=== PATIENT | male | born 1985 | race Caucasian/White ===

== ENCOUNTER 2020-09-29 17:13 | Emergency (ER) | payer MEDICAID, OTHER ==
[~2020-09-29] VITALS: Ht 175.3 cm; Wt 79.4 kg
--- NOTE | 2020-09-29 17:21 | NUR ---
MD at bedside for assessment Addendum: 09/29/20 at 1809 by TOAN Patient brought in by [email or web address] for N/V+
[2020-09-29] MEDS ORDERED: ONDANSETRON 4 MG/2 ML VIAL IV ONE (17:30)
[2020-09-29] MEDS ORDERED: IV NORMAL SALINE 1000 ML BAG IV ONE (17:30)
[2020-09-29 17:47] LABS: MEAN CORPUSCULAR HEMOGLOBIN 30.4 uug (23.8-33.4); MEAN CORPUSCULAR VOLUME 90.7 fL (73.0-96.2); PLATELET COUNT (AUTO) 224 K/uL (152-348)
[2020-09-29 17:48] LABS: CARBON DIOXIDE 28 mmol/L (21-32); CHLORIDE 104 mmol/L (98-107); CREATININE 1.1 mg/dL (0.6-1.3); GLUCOSE 128 mg/dL (74-106); POTASSIUM 4.2 mmol/L (3.5-5.1); UREA NITROGEN, BLOOD 11 mg/dL (7-18)
[2020-09-29 17:49] LABS: ETHANOL < 3 MG/DL (0-0)
[2020-09-29 17:56] LABS: ACETAMINOPHEN < 2.0 ug/mL (10-30); ALANINE AMINOTRANSFERASE 78 U/L (16-63); ALKALINE PHOSPHATASE 85 U/L (50-136); ASPARTATE AMINOTRANSFERASE 95 U/L (15-37); BILIRUBIN,DIRECT 0.1 mg/dL (0.0-0.2); BILIRUBIN,TOTAL 0.5 mg/dL (0.2-1.0); TOTAL PROTEIN, SERUM 7.7 g/dL (6.4-8.2)
[2020-09-29] MEDS ORDERED: IV NORMAL SALINE 500 ML BAG IV ONE (18:15)
--- NOTE | 2020-09-29 19:15 | NUR ---
Recieved report from VERONIQUE Gomes for continuity of care.
--- NOTE | 2020-09-29 19:47 | NUR ---
Pt reports he became nauseous and dizzy today after taking his daily seroquel. States this is normal for him. pts. oxygen is reducing to 90 on room air, current o2 sat is 100% with 3L nasal cannula. Pt. a&ox4, pts. and friend are at bedside.
[2020-09-29 19:51] LABS: *BILIRUBIN,URIN NEGATIVE (NEGATIVE); *BLOOD, URINE NEGATIVE (NEGATIVE); *CLARITY,URINE CLEAR (CLEAR); *COLOR,URINE YELLOW (YELLOW); *KETONES,URINE 1+ (NEGATIVE); LEUKOCYTE ESTERASE ,URINE NEGATIVE (NEGATIVE); NITRITE, URINE NEGATIVE (NEGATIVE); PH,URINE 6.5 (5.0-8.0); UGLUCOSE NEGATIVE (NEGATIVE)
--- NOTE | 2020-09-29 19:55 | NUR ---
pt. oxygen returned to 100% on room air. Will continue to monitor.
[2020-09-29 20:00] LABS: *AMPHETAMINE, URINE NEGATIVE (NEGATIVE); *CANNABINOID, URINE NEGATIVE (NEGATIVE); *COCCAINE, URINE NEGATIVE (NEGATIVE); *OPIATE, URINE NEGATIVE (NEGATIVE); *PHENCYCLIDINE SCREEN,URINE NEGATIVE (NEGATIVE)
[2020-09-29 20:01] LABS: BACTERIA,URINE NONE SEEN /HPF (NONE SEEN); RBC,URINE 0-3 /HPF (0-3); SQUAMOUS EPITHELIAL CELL,UR NONE SEEN /HPF (NONE SEEN); WBC,URINE 0-3 /HPF (0-3)
--- NOTE | 2020-09-29 20:34 | NUR ---
pt alert and oriented x4. Pt. denies dizziness and nausea. Vss. Pts. at bedside. Will continue to monitor.
--- NOTE | 2020-09-29 22:12 | NUR ---
IV removed. Catheter intact and site benign. Pressure and 4x4 gauze applied to site. No bleeding noted.
--- NOTE | 2020-09-29 22:15 | NUR ---
Patient discharged to home in stable condition. Written and verbal after care instructions given. Patient verbalizes understanding of instructions. Stressed follow up or return to ER for worsening s/s. Pt at bedside to drive pt home, all belongings with pt. pt denies any symptoms, walks with steady gait.
[2020-09-29 22:17] VITALS: BP 120/82
== END 2020-09-29 22:18 | disposition home or self-care (01) ==
LOC: ER 17:13
DX: E86.0 Dehydration (principal); G93.40 Encephalopathy, unspecified; F11.20 Opioid dependence, uncomplicated; R74.8 Abnormal levels of other serum enzymes
CPT/HCPCS: 36415; 70030-TC; 70450; 71045; 85025; A4663; G0480; J7030